=== PATIENT | female | born 1975 | race Caucasian/White ===

== ENCOUNTER 2016-09-11 22:20 | Emergency (ER) | payer MEDICAID ==
[~2016-09-11] VITALS: Ht 152.4 cm; Wt 72.6 kg
[~2016-09-11 22:20] MED LIST: ATIVAN0.5 MG PO; DEPAKOTE ER250 M1 PO; LEXAPRO10 MG PO; LEXAPRO20 MG PO; MOBIC15 MG PO; SONATA5 MG PO; TOPAMAX100 MG PO; TRAZODONE HCL50 MG PO; [UNRECOGNIZED DRUG - OTHER]
[2016-09-12] MEDS ORDERED: NEURONTIN300 MG PO (03:19)
[2017-02-06] MEDS ORDERED: CYMBALTA60 MG PO (03:32)
[2017-02-06] MEDS ORDERED: FLEXERIL10 MG PO (03:32)
== END 2016-09-11 23:07 | disposition short-term general hospital (02) ==
LOC: ER 22:20
DX: G43.909 Migraine, unspecified, not intractable, without status migrainosus (principal); J32.9 Chronic sinusitis, unspecified
CPT/HCPCS: J1885; J2550

== ENCOUNTER 2016-12-13 21:30 | Emergency (ER) | payer MEDICAID ==
[~2016-12-13] VITALS: Ht 152.4 cm; Wt 70.3 kg
[~2016-12-13 21:30] MED LIST changes: +NEURONTIN300 MG PO
[2017-02-06] MEDS ORDERED: CYMBALTA60 MG PO (03:32)
[2017-02-06] MEDS ORDERED: FLEXERIL10 MG PO (03:32)
== END 2016-12-13 23:20 | disposition short-term general hospital (02) ==
LOC: ER 21:30
DX: M54.5 Low back pain (principal); R30.0 Dysuria